=== PATIENT | female | born 1970 | race Two or more races ===

== ENCOUNTER 2022-12-24 08:51 | Emergency (ER) | payer OTHER ==
[~2022-12-24] VITALS: Ht 160 cm; Wt 63.5 kg
[2022-12-24] MEDS ORDERED: DILTIAZEM ER120 M2 (08:59)
[2022-12-24] MEDS ORDERED: CARAFATE1 GM (08:59)
[2022-12-24] MEDS ORDERED: PLAVIX75 MG (08:59)
[2022-12-24] MEDS ORDERED: BRILINTA60 MG PO (09:00)
[2022-12-24] MEDS ORDERED: LIPITOR20 MG (09:00)
== END 2022-12-24 17:01 | disposition home or self-care (01) ==
LOC: ER 08:51
DX: K57.30 Diverticulosis of large intestine without perforation or abscess without bleeding (principal); K52.9 Noninfective gastroenteritis and colitis, unspecified; Z88.8 Allergy status to other drugs, medicaments and biological substances; Z91.018 Allergy to other foods

== ENCOUNTER 2023-01-01 20:39 | Emergency (ER) | payer OTHER ==
[~2023-01-01] VITALS: Ht 160 cm; Wt 63.5 kg
[~2023-01-01 20:39] MED LIST: BRILINTA60 MG PO; CARAFATE1 GM; DILTIAZEM ER120 M2; LIPITOR20 MG; PLAVIX75 MG
[2023-01-01] MEDS ORDERED: ALLEGRA ALLERGY60 MG (21:28)
[2023-01-01] MEDS ORDERED: LEVSIN/SL0.125 MG SL (23:57)
== END 2023-01-02 00:21 | disposition home or self-care (01) ==
LOC: ER 20:39
DX: R10.31 Right lower quadrant pain (principal); Z88.8 Allergy status to other drugs, medicaments and biological substances; Z91.018 Allergy to other foods

== ENCOUNTER 2023-03-08 08:15 | Inpatient (IN) | payer OTHER ==
[~2023-03-08] VITALS: Ht 160 cm; Wt 63.5 kg
[~2023-03-08 08:15] MED LIST changes: +ALLEGRA ALLERGY60 MG; +LEVSIN/SL0.125 MG SL
[2023-03-08] MEDS ORDERED: BREO ELLIPTA I1 EACH IH (12:56)
[2023-03-12] MEDS ORDERED: MONTELUKAST SOD10 MG (07:56)
== END 2023-03-14 14:52 | disposition home or self-care (01) | DRG 743 ==
LOC: O/R 03-12 06:43 → OB/GYN 03-12 06:43 → SURG 03-12 07:00 → OB/GYN 03-12 13:29
PROVIDERS: ADMIT Student in an Organized Health Care Education/Training Program; ATTEND Student in an Organized Health Care Education/Training Program
PROC: 0UT74ZZ Resection of Bilateral Fallopian Tubes, Percutaneous Endoscopic Approach (ICD-10-PCS; 2023-03-12)
PROC: 0TJB8ZZ Inspection of Bladder, Via Natural or Artificial Opening Endoscopic (ICD-10-PCS; 2023-03-12)
PROC: 0UT94ZZ Resection of Uterus, Percutaneous Endoscopic Approach (ICD-10-PCS; principal; 2023-03-12 07:00)
DX: D25.1 Intramural leiomyoma of uterus (principal); N80.03 Adenomyosis of the uterus; N72 Inflammatory disease of cervix uteri; Z20.822 Contact with and (suspected) exposure to COVID-19